=== PATIENT | female | born 1950 | race Two or more races ===

== ENCOUNTER 2017-10-22 13:31 | Emergency (ER) | payer OTHER ==
[2017-10-22 13:58] VITALS: RESP 16; TEMP 98.6
[2017-10-22] MEDS ORDERED: fentaNYL 100 MCG/2 ML INJ IVP ONE (16:08)
--- NOTE | 2017-10-22 16:09 | EDPHY ---
H & P Stated Complaint: fall, LUE pain - Personal History Current Tetanus/Diphtheria Vaccine: Yes Current Tetanus Diphtheria and Acellular Pertussis (TDAP): Yes - Medical/Surgical History Hx Asthma: No Hx Chronic Respiratory Disease: No Hx Diabetes: No Hx Cardiac Disease: No Hx Renal Disease: No Hx Cirrhosis: No Hx Alcoholism: No Hx HIV/AIDS: No Hx Splenectomy or Spleen Trauma: No Other PMH: hypothyroid, L hip surgery, bakari, - Social History Smoking Status: Never smoked Time Seen by Provider: 10/22/17 14:35 HPI/ROS: CHIEF COMPLAINT: Left arm pain and swelling HISTORY OF PRESENT ILLNESS: The patient is a 66 y/o female with a history of osteoporosis and hypothyroidism complaining of pain and swelling in her left arm after a trip and fall. She was rearranging her bedroom furniture this morning around 9:30 AM, about 6 hours ago, when she tripped and fell, landing on her left side. She hit her left shoulder but denies hitting her head. She got up, put ice on her arm, and took 400 mg of ibuprofen. She went to urgent care who placed her in a sling and directed her to the ED. She denies any other injuries, headache, nausea, vomiting, or syncopal event. She denies numbness of LUE. REVIEW OF SYSTEMS: A 10 point review of systems was performed and is negative with the exception of the elements mentioned in the history of present illness. Past Medical History: 1. Osteoporosis 2. Hypothyroidism Surgical History: Denies Family History: Non-contributory Social History: [place]ese speaking, lives in [place], [facility] in [place] Adult Physical: General Appearance: Alert, no acute distress. HR 121 at triage. Head: Normocephalic, atraumatic. Eyes: Pupils equal and round, no conjunctival injection, no discharge. ENT, Mouth: Mucous membranes are moist, no oropharyngeal erythema or edema. Neck: Nontender to palpation over cervical spine in midline. Respiratory: Lungs are clear to auscultation; no wheezes, rales, or rhonchi. Cardiovascular: Regular rate and rhythm; no murmur, rub, or gallop. Gastrointestinal: Abdomen is soft and non tender, no masses or organomegaly, bowel sounds normal. Skin: Superficial scratches to the left collar bone. Warm and dry, no rashes, normal color. Back: Nontender to palpation over the thoracolumbar spine. Extremities: Obvious deformity to the left lower arm without open fracture. Tenderness to palpation fro left shoulder to left wrist, worse over deformity. Worse with movement. No other long bone tenderness. Pulse: 2+ bilateral radial pulses. Neurological: Alert and oriented. Sensation intact to light touch over LUE. Psychiatric: Normal affect. (Claudia Espinoza) Constitutional: Initial Vital Signs Temperature (C) 37 C 10/22/17 13:54 Heart Rate 121 H 10/22/17 13:54 Respiratory Rate 16 10/22/17 13:54 Blood Pressure 171/90 H 10/22/17 13:54 O2 Sat (%) 92 10/22/17 13:54 O2 Delivery Mode Room Air Allergies/Adverse Reactions: No Known Allergies Allergy (Unverified 10/22/17 13:54) Home Medications: Medication Instructions Recorded Hydrocodone/APAP 5/325 [[place] 1 - 2 tab PO Q4 PRN #10 tab 10/22/17 5/325 (RX)] Levothyroxine 10/22/17 Medical Decision Making Procedures: A hematoma block was placed by myself with good anesthesia. Patient tolerated the procedure well. Procedure: Fracture reduction. The wrist was reduced in the usual fashion without complications. Post reduction the patient's neurovascular exam is normal. Post reduction x-ray demonstrates reduction of the joint to the anatomic position. The procedure was performed by myself. Procedure: Splint placement. A sugar-tong splint was applied. After application of the splint I returned and re-examined the patient. The splint was adequately immobilizing the joint and distal to the splint the patient's circulation and sensation was intact. ( Sandro Arreola) ED Course/Re-evaluation: Based on exam and X-ray there is a comminuted displaced intra-articular fracture of the left distal radius that will need to be reduced. This is a closed fracture. I have not found other injuries. I have requested FITO Smith to reduce the fracture. I feel that after her arm has been reduced and stabilized she is safe for release with orthopedic follow up. I reassessed this patient after the reduction and splinting. She is neurovascularly intact (LUE) and the alignment is close to anatomic. I have reviewed the post reduction xray. I feel she is safe to be released with follow up with ortho. Return precautions and follow-up instructions given. The patient agrees to this course of action. (Claudia Espinoza) Differential Diagnosis: DDX includes but is not limited to fracture (open or closed), dislocation, sprain, strain, laceration, contusion. (Claudia Espinoza) - Data Points Medications Given: Discontinued Medications Fentanyl (Sublimaze) 100 mcg IVP EDNOW ONE Stop: 10/22/17 16:09 Last Admin: 10/22/17 16:34 Dose: 100 mcg Departure - Departure Disposition: Home, Routine, Self-Care Clinical Impression: Fracture of left distal radius Qualifiers: Encounter type: initial encounter Fracture type: closed Fracture morphology: unspecified fracture morphology Qualified Code(s): S52.502A - Unspecified fracture of the lower end of left radius, initial encounter for closed fracture Condition: Good Instructions: Wrist Fracture in Adults (ED) Additional Instructions: 1. Take [place], Tylenol, and ibuprofen as directed as needed for pain. 2. Follow up with Dr. Garcia, orthopedics, for your fracture. Please call their office tomorrow to schedule an appointment. 3. Return to the ED for any worsening of condition. Adult Pain & Fever Control: We recommend Acetaminophen (Tylenol) and Ibuprofen (Motrin,Advil) for pain and fever control. When fever is high or pain severe, both drugs can be used at the same time, but at different intervals. Please note the time differences. Your dose is: Acetaminophen 650mg every 4 to 6 hours Ibuprofen 600mg every 8 hours with food Note: do not take Acetaminophen with Hydrocodone (Vicodin, Lortab) or Oycodone (Percocet). These medications also contain Acetaminophen. No more than 3000mg of Acetaminophen should be taken in 24 hours (for an adult). Referrals: Jesus Garcia MD [Medical Doctor] - As per Instructions Prescriptions: Hydrocodone/APAP 5/325 [[place] 5/325 (RX)] 1 - 2 tab PO Q4 PRN #10 tab PRN Reason: pain Report Scribed for: Claudia Espinoza Report Scribed by: Marybeth Helton Date of Report: 10/22/17 Time of Report: 16:09 Physician Review and Approval Statement: 10/22/17 16:09 Portions of this note were transcribed by a medical billing instructor. I personally performed a history, physical exam, medical decision making, and confirmed accuracy of information the transcribed note. (Claudia Espinoza)
[2017-10-22 17:46] VITALS: BP 128/98; PULSE 89; O2SAT 96
== END 2017-10-22 17:46 | disposition home or self-care (01) ==
PROC: 0PSLXZZ Reposition Left Ulna, External Approach (ICD-10-PCS; principal; 2017-10-22)
PROC: 0PSJXZZ Reposition Left Radius, External Approach (ICD-10-PCS; principal; 2017-10-22)
DX: S52.572A Other intraarticular fracture of lower end of left radius, initial encounter for closed fracture (principal); W01.198A Fall on same level from slipping, tripping and stumbling with subsequent striking against other object, initial encounter
CPT/HCPCS: 25605; 73030; 73080; 73090; 73110; 96374; 99284; J3010; L3980